=== PATIENT | male | born 1970 | race Asian ===

== ENCOUNTER 2020-01-24 12:44 | Emergency (ER) | payer OTHER ==
[2020-01-24] MEDS ORDERED: IBUPROFEN 800 MG TABLET PO STA (13:13)
--- NOTE | 2020-01-24 13:18 | ED Physician Documentation ---
PD HPI LOWER EXT INJURY - Stated complaint Stated Complaint: LT ANKLE INJ - Chief complaint Chief Complaint: Ext Problem - History obtained from History obtained from: Patient - History of Present Illness PD HPI LOW EXT INJURY LOCATION: Left, Ankle Type of injury: Fall (off ladder) Where injury occurred: Home Timing - onset: How many hours ago (1) Timing - duration: Hours (1) Timing - details: Abrupt onset Pain level max: 7 Pain level now: 4 Improved by: Rest, Ice, Immobilization Worsened by: Moving, Palpating Associated symptoms: Swelling. No: Weakness, Numbness, Tingling Contributing factors: No: Anticoagulated, Prior ortho surgery, Prosthetic joint Similar symptoms before: Has not had sx before Recently seen: Not recently seen Review of Systems Constitutional: denies: Fever, Chills GI: denies: Vomiting, Diarrhea Musculoskeletal: denies: Neck pain, Back pain Neurologic: denies: Focal weakness, Numbness, Headache, Head injury, LOC PD PAST MEDICAL HISTORY - Past Medical History Cardiovascular: None Respiratory: None Endocrine/Autoimmune: None GI: None : None HEENT: None Psych: None Musculoskeletal: None Derm: Eczema - Past Surgical History Past Surgical History: No - Present Medications Home Medications: Ambulatory Orders Medication Instructions Recorded Confirmed Dicyclomine [Bentyl] 20 mg PO QID PRN #20 capsule 04/08/16 Oxycodone HCl/Acetaminophen 1 each PO Q6H PRN #15 tablet 04/08/16 [Percocet 5-325 mg Tablet] HYDROcod/ACETAM 5/325 [Latham 5/325] 1 - 2 ea PO Q6H PRN #14 tablet 01/24/20 Ibuprofen [Motrin] 800 mg PO Q8H PRN #30 tablet 01/24/20 - Allergies Allergies/Adverse Reactions: Allergies Allergy/AdvReac Type Severity Reaction Status Date / Time No Known Drug Allergies Allergy Verified 01/24/20 12:55 - Social History Does the pt smoke?: Yes Smoking Status: Current every day smoker Does the pt drink ETOH?: Yes Does the pt have substance abuse?: No - Immunizations Immunizations are current?: Yes PD ED PE NORMAL - Vitals Vital signs reviewed: Yes - General General: Alert and oriented X 3, No acute distress - HEENT HEENT: Atraumatic, PERRL, EOMI, Moist mucous membranes - Neck Neck: Supple, no meningeal sign, No bony TTP - Cardiac Cardiac: RRR - Respiratory Respiratory: No respiratory distress, Clear bilaterally - Back Back: No spinal TTP - Derm Derm: Warm and dry - Extremities Extremities: Other (Tender to palpation over the left ankle, lateral malleolus with swelling. No tenderness over the calcaneus, the fifth metatarsal, the remainder of the foot or remainder of the tibia and fibula. Neurovascular intact) - Neuro Neuro: Alert and oriented X 3 - Psych Psych: Normal mood, Normal affect Results - Vitals Vitals: Vital Signs - 24 hr 01/24/20 01/24/20 12:53 15:44 Temperature 36.3 C L 36.5 C Heart Rate 78 72 Respiratory 18 16 Rate Blood Pressure 157/109 H 150/90 H O2 Saturation 100 100 Oxygen O2 Source Room air - Rads (name of study) L ankle xray Radiology: Prelim report reviewed, EMP read contemporaneously, See rad report (Complex, comminuted calcaneal fracture. ) CT ankle Radiology: Prelim report reviewed, EMP read contemporaneously, See rad report (Complex, comminuted fractures of the calcaneus, with numerous fracture lines. There is moderate displacement. Intra-articular involvement can be seen along the talocalcaneal joint. ) Procedures - Splint (location) Left ankle Splint applied by: Physician, Satish Type of splint: Short leg, Posterior, Other (bulky thacker) Other: Patient tolerated well, No complications, Neurovascular intact, Crutches provided PD MEDICAL DECISION MAKING - ED course Complexity details: reviewed results, re-evaluated patient, considered differential, d/w patient, d/w sql server consultant ED course: Patient with a left left calcaneus fracture. Discussed the case with orthopedics on-call, Dr. Rizo. Patient will follow-up in clinic. Bulky Charity josseline splint applied. Neurovascular intact. Patient counseled regarding signs and symptoms for which I believe and urgent re-evaluation would be necessary. Patient with good understanding of and agreement to plan and is comfortable going home at this time This document was made in part using voice recognition software. While efforts are made to proofread this document, sound alike and grammatical errors may occur. Departure - Departure Disposition: 01 Home, Self Care Clinical Impression: Calcaneus fracture, left Qualifiers: Encounter type: initial encounter Calcaneus location: unspecified portion of calcaneus Fracture type: closed Fracture alignment: nondisplaced Qualified Code(s): S92.002A - Unspecified fracture of left calcaneus, initial encounter for closed fracture Condition: Good Instructions: ED Fx Foot Follow-Up: [facility] [Provider Group] - Within 1 week Prescriptions: Ibuprofen [Motrin] 800 mg PO Q8H PRN #30 tablet PRN Reason: PAIN &/OR FEVER HYDROcod/ACETAM 5/325 [Latham 5/325] 1 - 2 ea PO Q6H PRN #14 tablet PRN Reason: Pain Comments: Follow-up with orthopedics for further care. Call the office on Saturday for an appointment this week. I spoke with Dr. Rizo today. You are to be nonweightbearing on the left leg. Do not drink alcohol or drive while on narcotic pain medicine. Note that many narcotic pain relievers also contain tylenol/acetaminophen. Please ensure that your total dose of acetaminophen from all sources does not exceed 3 grams (3000mg) per day. You may constipated on this medication, take a stool softener such as "Colace" twice a day while you are on it. Also recommend a mydl-omf-[id number] laxative such as senna or MiraLAX any day that you do not have a bowel movement. If you received narcotic pain medication in the emergency department, do not drive or operate machinery for the next 24 hours. Discharge Date/Time: 01/24/20 15:44
--- NOTE | 2020-01-24 13:34 | XRAY Report ---
PROCEDURE: Ankle 3 View LT INDICATIONS: fall, lateral malleolus pain TECHNIQUE: 3 views of the ankle were acquired. COMPARISON: None FINDINGS: Bones: There is a complex, comminuted fracture seen of the calcaneus, primarily anteriorly. This is best seen on the lateral image. Ankle mortise is normally aligned. No suspicious bony lesions. The talar dome demonstrates an unre markable appearance. Incidental note is made of an enthesophyte at the Achilles insertion. Soft tissues: Soft tissue swelling is seen, particularly laterally. IMPRESSION: Complex, comminuted calcaneal fracture. Please consider dedicated ankle CT for further evaluation. Reviewed by: Librado Gilmore MD on 01/24/2020 12:33 PM JASON Approved by: Librado Gilmore MD on 01/24/2020 12:33 PM JASON Station ID: [id number]
--- NOTE | 2020-01-24 14:13 | CT Report ---
PROCEDURE: LOWER EXTREMITY WO - LT INDICATIONS: fall, calcaneus fracture TECHNIQUE: Noncontrast 3 mm axial sections acquired of the left foot, with coronal and sagittal reformats. COMPARISON: Correlation is made with ankle plain films 01/24/2020 FINDINGS: Image quality: Excellent. Bones: There is a comminuted moderately displaced fracture of the calcaneus. Intra-articular involve ment can be seen along the talocalcaneal joint. No definite, additional fractures are seen. No dislocations are seen. Degenerative changes are seen, including a moderate Achilles insertion enthesophyte along the posteri or aspect of the calcaneus. Toe alignment abnormalities can be seen. Soft tissues: Associated soft tissue swelling is seen. IMPRESSION: Complex, comminuted fractures of the calcaneus, with numerous fracture lines. There is moderate displ acement. Intra-articular involvement can be seen along the talocalcaneal joint. Reviewed by: Librado Gilmore MD on 01/24/2020 1:11 PM JASON Approved by: Librado Gilmore MD on 01/24/2020 1:11 PM JASON Station ID: [id number]
[2020-01-24 15:46] VITALS: BP 150/90
== END 2020-01-24 15:44 | disposition home or self-care (01) ==
LOC: ED 12:44
DX: S92.062A Displaced intraarticular fracture of left calcaneus, initial encounter for closed fracture (principal); W11.XXXA Fall on and from ladder, initial encounter; Y92.009 Unspecified place in unspecified non-institutional (private) residence as the place of occurrence of the external cause; F17.200 Nicotine dependence, unspecified, uncomplicated
CPT/HCPCS: 29515; 73610; 73700; 99283; 99284; A9270

== ENCOUNTER 2020-03-03 08:51 | Outpatient (CLI) | payer OTHER ==
--- NOTE | 2020-03-03 08:55 | XRAY Report ---
PROCEDURE: Calcaneus LT INDICATIONS: LEFT CALCANEOUS FRACTURE TECHNIQUE: Two views of the calcaneus were acquired. COMPARISON: 01/24/2020 FINDINGS: Bones: Redemonstration of previously described comminuted intra-articular fracture of the calcaneus p redominantly involving the anterior half of the calcaneus. There is suggestion of mild widening of th e anterior subtalar joint space. This is likely projectional. Ankle mortise is preserved. Other osseo us structures appear intact. Persistent overlying soft tissue swelling of the lateral malleolus. Retr ocalcaneal enthesophyte. No suspicious bony lesions. Soft tissues: No suspicious calcifications. Achilles tendon appears normal. IMPRESSION: Stable appearance and alignment of comminuted calcaneal fracture. Reviewed by: Jose Roche MD on 03/03/2020 8:54 AM PDT Approved by: Jose Roche MD on 03/03/2020 8:54 AM PDT Station ID: [id number]
== END 2020-03-03 23:59 | disposition home or self-care (01) ==
LOC: DI.WCP 08:51
PROVIDERS: ATTEND Orthopaedic Surgery
DX: S92.062A Displaced intraarticular fracture of left calcaneus, initial encounter for closed fracture (principal)

== ENCOUNTER 2020-04-11 07:12 | Outpatient (CLI) | payer OTHER ==
--- NOTE | 2020-04-11 16:57 | XRAY Report ---
PROCEDURE: Calcaneus LT INDICATIONS: DISPLACED INTERARTICULAR FX OF L CALCANEUS TECHNIQUE: Two views of the calcaneus were acquired. COMPARISON: 03/03/2020 and 01/24/2020 lateral soft tissue swelling has diminished without resolution. FINDINGS: Bones: Mildly displaced, comminuted, intraarticular fracture of the calcaneus is stable in appearance Soft tissues: No suspicious calcifications. Achilles tendon appears normal. IMPRESSION: Stable comminuted, intra-articular calcaneus fracture. Reviewed by: Cait Velasquez MD, PhD on 04/11/2020 4:56 PM PST Approved by: Cait Velasuqez MD, PhD on 04/11/2020 4:56 PM PST Station ID: [id number]
== END 2020-04-11 23:59 | disposition home or self-care (01) ==
LOC: DI.N 07:12
PROVIDERS: ATTEND Orthopaedic Surgery
DX: S92.062A Displaced intraarticular fracture of left calcaneus, initial encounter for closed fracture (principal)

== ENCOUNTER 2021-10-11 07:36 | Outpatient (CLI) | payer OTHER ==
[2021-10-11 12:34] LABS: BASOPHILS # (AUTO) 0.1 10^3/uL (0.0-0.1); BASOPHILS % (AUTO) 1.2 %; EOSINOPHILS # (AUTO) 0.4 10^3/uL (0.0-0.7); HCT - HEMATOCRIT 49.3 % (42.0-52.0); HGB - HEMOGLOBIN 16.9 g/dL (14.0-18.0); LYMPHOCYTES # (AUTO) 3.1 10^3/uL (1.5-3.5); MEAN CORPUSCULAR HEMOGLOBIN 30.6 pg (27.0-31.0); MEAN CORPUSCULAR HGB CONC 34.3 g/dL (32.0-36.0); MEAN CORPUSCULAR VOLUME 89.3 fL (80.0-94.0); MEAN PLATELET VOLUME 10.7 fL (7.4-11.4); MONOCYTES # (AUTO) 0.6 10^3/uL (0.0-1.0); MONOCYTES % (AUTO) 5.8 %; NEUTROPHILS # (AUTO) 5.6 10^3/uL (1.5-6.6); NEUTROPHILS % (AUTO) 56.6 %; PLT - PLATELET COUNT 233 10^3/uL (130-450); RED BLOOD COUNT 5.52 10^6/uL (4.70-6.10); RED CELL DISTRIBUTION WIDTH 12.3 % (12.0-15.0); WHITE BLOOD COUNT 9.8 x10^3/uL (4.8-10.8)
[2021-10-11 13:08] LABS: ALBUMIN 4.5 g/dL (3.2-5.5); ALBUMIN/GLOBULIN RATIO 1.5 (1.0-2.2); ALKALINE PHOSPHATASE 67 IU/L (42-121); ALT ALANINE AMINOTRANSFERASE 36 IU/L (10-60); AST ASPARTATE AMINOTRANSFERASE 24 IU/L (10-42); BILIRUBIN,TOTAL 1.1 mg/dL (0.2-1.0); BUN - BLOOD UREA NITROGEN 15 mg/dL (6-20); CALCIUM 9.3 mg/dL (8.5-10.3); CARBON DIOXIDE - CO2 25 mmol/L (21-32); CHLORIDE 105 mmol/L (101-111); CHOL/HDL RATIO 4.9 (<5.0); CHOLESTEROL 186 mg/dL; CREATININE 1.2 mg/dL (0.6-1.2); GFR - MDRD 64 (>89); GLUCOSE 111 mg/dL (70-100); HDL CHOLESTEROL 38 mg/dL; LDL CHOLESTEROL,CALCULATED 100 mg/dL; LDL/HDL RATIO 2.6 (<3.6); POTASSIUM 3.9 mmol/L (3.5-5.0); SODIUM 142 mmol/L (135-145); TOTAL PROTEIN 7.5 g/dL (6.7-8.2); TRIGLYCERIDES 240 mg/dL; VLDL CHOLESTEROL 48 mg/dL
[2021-10-11 13:11] LABS: THYROID STIMULATING HORMONE 3.38 uIU/mL (0.34-5.60)
== END 2021-10-11 07:37 | disposition home or self-care (01) ==
LOC: LAB.N 07:36
PROVIDERS: ATTEND Family Medicine
DX: E78.5 Hyperlipidemia, unspecified (principal); F17.200 Nicotine dependence, unspecified, uncomplicated; I10 Essential (primary) hypertension
CPT/HCPCS: 36415; 80053; 80061; 83721; 84443; 85025

== ENCOUNTER 2022-10-01 06:42 | Emergency (ER) | payer OTHER ==
[2022-10-01] MEDS ORDERED: LIDOCAINE PATCH 5% TOP STA (07:39)
--- NOTE | 2022-10-01 07:44 | ED Physician Documentation ---
PD HPI HEENT - Stated complaint Stated Complaint: NECK PX - Chief complaint Chief Complaint: Heent - History obtained from History obtained from: Patient - Additional information Additional information: Patient is a 52-year-old male with a history of hypertension hyperlipidemia presenting for evaluation of left-sided neck pain that is been present for 3 weeks. Patient states he woke up with the pain. Patient reports it feels like he slept wrong. He has tried ice, massage and occasional doses of Aleve without any improvement. He denies any injury or trauma, neck manipulation, fevers, Pain into the upper extremities, Limb weakness or numbness. He denies a headache. Review of Systems Constitutional: denies: Fever Cardiac: denies: Chest pain / pressure Respiratory: denies: Dyspnea GI: denies: Abdominal Pain Musculoskeletal: reports: Neck pain. denies: Extremity pain Neurologic: denies: Headache PD PAST MEDICAL HISTORY - Past Medical History Cardiovascular: None Respiratory: None Endocrine/Autoimmune: None GI: None : None HEENT: None Psych: None Musculoskeletal: None Derm: Eczema - Past Surgical History Past Surgical History: No - Present Medications Home Medications: Ambulatory Orders Medication Instructions Recorded Confirmed Atorvastatin [Lipitor] 10 mg ORAL HS 10/01/22 10/01/22 Cyclobenzaprine [Flexeril] 10 mg PO TID PRN #20 tablet 10/01/22 Lidocaine Patch 5% [Lidoderm Patch] 1 patch TOP DAILY PRN #10 patch 10/01/22 Valsartan [Diovan] 80 mg PO DAILY 10/01/22 10/01/22 - Allergies Allergies/Adverse Reactions: Allergies Allergy/AdvReac Type Severity Reaction Status Date / Time No Known Drug Allergies Allergy Verified 10/01/22 06:55 - Social History Does the pt smoke?: Yes Smoking Status: Current every day smoker Does the pt drink ETOH?: Yes Does the pt have substance abuse?: No - Immunizations Immunizations are current?: Yes PD ED PE NORMAL - General General: Alert and oriented X 3, No acute distress, Well developed/nourished - HEENT HEENT: Atraumatic, Moist mucous membranes - Neck Neck: Supple, no meningeal sign, No bony TTP, Other (Reports pain when moving neck laterally to the left, good range of motion when moving to the right; Tenderness/spasm over left trapezius, no erythema, no abscess,) - Cardiac Cardiac: RRR, Strong equal pulses - Respiratory Respiratory: No respiratory distress, Clear bilaterally - Back Back: No spinal TTP - Derm Derm: Warm and dry - Extremities Extremities: Normal ROM s pain - Neuro Neuro: Alert and oriented X 3, No motor deficit, No sensory deficit, Normal speech Results - Vitals Vitals: Vital Signs - 24 hr 10/01/22 10/01/22 06:51 08:03 Temperature 36.7 C Heart Rate 68 65 Respiratory 19 18 Rate Blood Pressure 151/86 H 129/102 H O2 Saturation 99 98 Oxygen O2 Source Room air PD Medical Decision Making - ED course ED course: Patient presenting with atraumatic left-sided neck pain.No meningeal symptoms to suggest subarachnoid hemorrhage or meningitis. No headache.Neuro exam is normal. No midline tenderness. No recent manipulations. No trauma. Patient does have tenderness and spasm over Left trapezius. Suspect that this is likely related to a muscle spasm and discussed treatment options with lidocaine patches and muscle relaxers which he is agreeable to. Discussed the need for close follow-up with his PCM. He is advised on concerning symptoms to return for. Departure - Departure Disposition: 01 Home, Self Care Clinical Impression: Spasm of cervical paraspinous muscle Condition: Stable Instructions: ED Neck Pain No Trauma, ED Spasm Neck No Injury Prescriptions: Cyclobenzaprine [Flexeril] 10 mg PO TID PRN #20 tablet PRN Reason: Spasms Lidocaine Patch 5% [Lidoderm Patch] 1 patch TOP DAILY PRN #10 patch PRN Reason: pain Comments: Your symptoms appear to be related to a muscle spasm In your neck causing your symptoms. I am prescribing you lidocaine patches and a muscle relaxer which I have sent to [facility] in [place]. Please do not drive or operate heavy machinery while using the muscle relaxer as it may be sedating. Continue with anti-inflammatory such as ibuprofen or acetaminophen. You may also try heat or gentle massage. I would recommend close follow-up with your PCM. Return to the emergency department if you develop worsening symptoms such as weakness in your arm, numbness, fevers or any concerns. Discharge Date/Time: 10/01/22 08:04
[2022-10-01 08:06] VITALS: BP 129/102
== END 2022-10-01 08:04 | disposition home or self-care (01) ==
LOC: ED 06:42
DX: M62.830 Muscle spasm of back (principal); F17.200 Nicotine dependence, unspecified, uncomplicated; Z79.899 Other long term (current) drug therapy
CPT/HCPCS: 99282; 99283; A9270

== ENCOUNTER 2022-10-10 11:42 | Outpatient (CLI) | payer OTHER ==
--- NOTE | 2022-10-10 14:23 | XRAY Report ---
PROCEDURE: Cervical Spine Comp w/Flex/Ext INDICATIONS: CERVICAL RADICULOPATHY TECHNIQUE: 7 views of the cervical spine were acquired. COMPARISON: None. FINDINGS: Bones: No fractures or dislocations to the T1 level. No suspicious bony lesions. There is diminish ed range of motion between flexion and extension, with preserved normal bony alignment. Oblique image s demonstrate bony foraminal patency. Soft tissues: Prevertebral soft tissues are normal in thickness. IMPRESSION: Unremarkable cervical spine plain films with flexion and extension and oblique imaging. Reviewed by: Oziel Mcguire MD on 10/10/2022 2:21 PM PDT Approved by: Oziel Mcguire MD on 10/10/2022 2:21 PM PDT Station ID: [id number]
== END 2022-10-10 11:43 | disposition home or self-care (01) ==
LOC: DI 11:42
PROVIDERS: ATTEND Family Medicine
DX: M54.12 Radiculopathy, cervical region (principal)